=== PATIENT | female | born 1980 | race Caucasian/White ===

== ENCOUNTER 2017-05-29 10:21 | Emergency (ER) | payer OTHER ==
[2017-05-29 21:23] LABS: ADD MAN DIFF? NO
[2017-05-29 21:25] LABS: BASOPHILS % 0.6 % (0.0-2.0); EOSINOPHILS % 0.9 % (0.0-7.0); LYMPHOCYTES # 1.6 10^3/ul (0.8-2.9); LYMPHOCYTES % 33.2 % (15.0-51.0); MEAN CORPUSCULAR HGB CONC 34.1 g/dl (32.0-37.0); MEAN CORPUSCULAR VOLUME 93.6 fl (82.0-101.0); MEAN PLATELET VOLUME 10.9 fl (7.4-10.4); MONOCYTE # 0.4 10^3/ul (0.3-0.9); MONOCYTES % 8.8 % (0.0-11.0); NEUTROPHIL # 2.6 10^3/ul (1.6-7.5); NEUTROPHILS % 56.3 % (39.0-77.0); PLATELET COUNT 217 10^3/UL (140-415); RED BLOOD COUNT 4.38 10^6/ul (4.20-5.40); RED CELL DISTRIBUTION WIDTH 11.9 % (11.5-14.5)
[2017-05-29 21:25] LABS: WHITE BLOOD COUNT 4.7 10^3/ul (4.8-10.8)
[2017-05-29 21:42] LABS: PARTIAL THROMBOPLASTIN TIME 29.7 Sec (25.0-35.0)
[2017-05-29 21:46] LABS: ANION GAP 15 (8-16); BLOOD UREA NITROGEN 2 mg/dl (7-20); CALCIUM 10.2 mg/dl (8.4-10.2); CARBON DIOXIDE 25 mmol/L (21-31); CHLORIDE 103 mmol/L (97-110); CREATININE 0.53 mg/dl (0.44-1.00); GLUCOSE 98 mg/dl (70-220); INR 0.93; POTASSIUM 3.6 mmol/L (3.5-5.1); PROTIME 12.6 Sec (11.9-14.9); SODIUM 139 mmol/L (135-144)
[2017-05-29 21:58] LABS: TROPONIN-I < 0.012 ng/ml (0.00-0.12)
[2017-05-29] MEDS: ASPIRIN 81 MG TAB PO (23:04)
== END 2017-05-30 00:10 | disposition home or self-care (01) ==
LOC: E/R 10:21
DX: R20.0 Anesthesia of skin (principal); I80.02 Phlebitis and thrombophlebitis of superficial vessels of left lower extremity; R07.9 Chest pain, unspecified
CPT/HCPCS: 36415; 70450; 71045; 80048; 84484; 85025; 85610; 85730; 93005; 93971; 99285-25

== ENCOUNTER 2017-05-30 08:07 | Emergency (ER) | payer OTHER | END 2017-05-30 12:13 | disposition home or self-care (01) | LOC: E/R 08:07 | DX: R20.0 Anesthesia of skin (principal); Z79.82 Long term (current) use of aspirin | CPT/HCPCS: 70551; 99284-25 ==